=== PATIENT | male | born 1965 | race Caucasian/White ===

== ENCOUNTER 2016-10-19 21:16 | Observation (INO) | payer BC, OTHER ==
[2016-10-19] MEDS ORDERED: Nitrostat 0.4 MG (ED) SL ONE ×2 (21:29→21:44)
[2016-10-19] MEDS ORDERED: BABY ASPIRIN 81 MG CHEW PO ONE (21:29)
[2016-10-19] MEDS ORDERED: Sodium Chloride 0.9% 1000 ML 1,000 ML IV SCH (21:30)
[2016-10-19 21:43] LABS: Mean Cell Volume 98.5 fl (78-100); Mean Corpuscular Hemoglobin 34.4 pg (26-32); Mean Platelet Volume 9.4 fl (6-9.5); Platelet Count 278 K/mm3 (150-450); Red Blood Count 3.98 M/mm3 (4.1-5.6); Red Cell Distribution Width 11.9 % (11.5-14.0); White Blood Count 11.8 K/mm3 (4.0-10.5)
[2016-10-19] MEDS ORDERED: BABY ASPIRIN 81 MG CHEW ONE (21:44)
--- NOTE | 2016-10-19 21:45 | ERPHSYRPT ---
- History of Present Illness Time Seen by Provider: 10/19/16 21:30 Historian: patient Exam Limitations: clinical condition Patient Subjective Stated Complaint: pt has been having chest pain off and on all day he had an mi in august with stent placement -took 1 nitro this edward with temp releif on arr pt is having sl pain and he came because his insisted - feel s like someone is pushing on his chest Triage Nursing Assessment: pt is awake and alert and able to answer question Physician History: PATIENT WITH A HISTORY OF MYOCARDIAL INFARCTION 08/2016 WITH STENT PLACEMENT AT [facility], NOW HAS HAD SUBSTERANL CHEST PAIN LIKE PRESSURE DISCOMFORT THROUGHOUT THE DAY, TOOK NITROGLYCERIN 0.4MG SL X 1 WITH INTERMITTENT RELIEF. STATES PAIN RECURRENCE TO A INTERMITTENT PAIN SCALE OF 5/10. HE DENIES DYSPNEA , DIAPHORESIS OR PALPITATIONS. Timing/Duration: today, intermittent Activities at Onset: none Quality: pressure Location: substernal Chest Pain Radiation: no radiation Severity of Pain-Max: moderate Severity of Pain-Current: moderate Associated Symptoms: denies symptoms Prior Chest Pain/Cardiac Workup: cardiac cath, heart attack Nitro Today/Relief: 0.4 mg x 1, provided by ED, provided at home Aspirin Treatment Today: 81 mg x 4, provided by ED Allergies/Adverse Reactions: No Known Drug Allergies Allergy (Unverified 10/19/16 21:35) Home Medications: Aspirin 81 mg PO DAILY 10/19/16 [History] Atorvastatin Calcium 10 mg PO HS 10/19/16 [History] Carvedilol 6.25 mg [Coreg 6.25 MG] 6.25 mg PO BID 10/19/16 [History] Famotidine 40 mg PO DAILY 10/19/16 [History] Fenofibrate 160 mg PO DAILY 10/19/16 [History] Nitroglycerin 0.4 mg Tablet [Nitrostat 0.4 MG Tablet] 0.4 mg SL UD [History] Ticagrelor [Brilinta] 90 mg PO BID 10/19/16 [History] Hx Influenza Vaccination/Date Given: No Hx Pneumococcal Vaccination/Date Given: No - Review of Systems Constitutional: No Fever, No Chills Eyes: No Symptoms Ears, Nose, & Throat: No Symptoms Respiratory: No Symptoms, No Cough, No Dyspnea Cardiac: Chest Pain, No Edema, No Syncope Abdominal/Gastrointestinal: No Symptoms, No Abdominal Pain, No Nausea, No Vomiting, No Diarrhea Genitourinary Symptoms: No Symptoms, No Dysuria Musculoskeletal: No Symptoms, No Back Pain, No Neck Pain Skin: No Symptoms, No Rash Neurological: No Dizziness, No Focal Weakness, No Sensory Changes Psychological: No Symptoms Endocrine: No Symptoms All Other Systems: Reviewed and Negative - Past Medical History Pertinent Past Medical History: Yes Cardiac History: Myocardial Infarction ([place]) - Past Surgical History Past Surgical History: Yes Cardiac: Cardiac Stent - Social History Smoking Status: Current every day smoker Exposure to second hand smoke: Yes Drug Use: none Patient Lives Alone: No - Nursing Vital Signs Pulse Rate: 72 Respiratory Rate: 16 Pain Intensity: 2 - Physical Exam General Appearance: no apparent distress, alert Eye Exam: PERRL/EOMI, eyes nml inspection Ears, Nose, Throat Exam: normal ENT inspection, moist mucous membranes Neck Exam: normal inspection, non-tender, supple, full range of motion Respiratory Exam: normal breath sounds, lungs clear, No respiratory distress Cardiovascular Exam: regular rate/rhythm, normal heart sounds Gastrointestinal/Abdomen Exam: soft, normal bowel sounds, No tenderness, No mass Back Exam: normal inspection, No CVA tenderness, No vertebral tenderness Extremity Exam: normal inspection, normal range of motion Neurologic Exam: alert, oriented x 3, cooperative, normal mood/affect, sensation nml, No motor deficits Skin Exam: normal color, warm, dry SpO2: 98 Oxygen Delivery: Room Air - Course EKG Interpreted by Me: RATE, Sinus Rhythm, NORMAL AXIS, Other (ANTERIOR SEPTAL T -WAVE INVERSION NO CHANGE FROM EKG 09/08/2016) - Radiology Exams Chest X-ray Interpretation: Interpreted by me, Negative Ordered Tests: Active Orders 24 hr Category Date Time Status Bedrest with BRP/BSC ROUTINE Activity 10/19/16 23:21 Ordered Admission/Status Order ROUTINE Care 10/19/16 23:21 Ordered Call Admit Doctor for Orders ROUTINE Care 10/19/16 23:20 Ordered Ice Skater STAT Care 10/19/16 21:29 Completed Code Status Order ROUTINE Care 10/19/16 23:21 Ordered EKG-ER Only STAT Care 10/19/16 21:29 Completed IV Care Q6H Care 10/19/16 23:21 Ordered IV Insertion STAT Care 10/19/16 21:29 Active Implement Chest Pain Pathway ROUTINE Care 10/19/16 23:21 Ordered Oxygen-ED Only NASAL CANNULA 2 lpm Care 10/19/16 21:29 Active Be Ballard ROUTINE Care 10/19/16 23:21 Ordered Telemetry ROUTINE Care 10/19/16 23:21 Ordered Vital Signs Q4H Care 10/19/16 23:20 Ordered Weight,Daily 0600 Care 10/19/16 23:21 Ordered Cardiac Diet Diet 10/19/16 Breakfast Ordered CHEST 1 VIEW (PORTABLE) Stat Exams 10/19/16 21:33 Taken CBC W DIFF Stat Lab 10/19/16 21:30 Completed CMP Stat Lab 10/19/16 21:30 Completed D-DIMER QUANTITATION Stat Lab 10/19/16 21:30 Completed LIPID PROFILE AM.LAB Lab 10/20/16 04:00 Ordered Manual Differential NC Stat Lab 10/19/16 21:30 Completed PROTIME WITH INR Stat Lab 10/19/16 21:30 Completed TROPONIN Q3H Lab 10/19/16 21:30 Completed TROPONIN Q3H Lab 10/20/16 00:45 Ordered TROPONIN Q3H Lab 10/20/16 03:45 Ordered TROPONIN Q3H Lab 10/20/16 06:45 Ordered TROPONIN Q3H Lab 10/20/16 09:45 Ordered EKG Q8HX2,QAMX3,PRN RT 10/19/16 23:21 Ordered Pulse Oximetry Q4H RT 10/19/16 23:21 Ordered Transfer Order Routine Transfer 10/19/16 23:20 Ordered Medication Summary Generic Name Dose Route Start Last Admin Trade Name Freq PRN Reason Stop Dose Admin Acetaminophen 650 mg 10/19/16 23:20 Tylenol 325 Mg PO 11/18/16 23:19 Q4H PRN PRN PAIN AND/OR FEVER Al Hydrox/Mg Hydrox/Simethicone 30 ml 10/19/16 23:20 Maalox Es 30 Ml Unit Dose PO 11/18/16 23:19 Q4H PRN PRN INDIGESTION Aspirin 325 mg 10/20/16 10:00 Ecotrin 325 Mg PO 11/19/16 09:59 DAILY LYNNETTE Carvedilol 6.25 mg 10/20/16 10:00 Coreg 6.25 Mg PO 11/19/16 09:59 BID L[place]NNETTE Famotidine 20 mg 10/20/16 10:00 Pepcid 20 Mg PO 11/19/16 09:59 BID [facility] Fenofibrate 145 mg 10/20/16 10:00 Tricor 145 Mg PO 11/19/16 09:59 DAILY [facility] Sodium Chloride 1,000 mls @ 50 mls/hr 10/19/16 21:30 10/19/16 21:44 Sodium Chloride 0.9% 1000 Ml IV 11/18/16 21:29 50 mls/hr .Q20H LYNNETTE Administration Magnesium Hydroxide 30 - 60 ml 10/19/16 23:20 Milk Of Magnesia 30 Ml PO 11/18/16 23:19 QDP PRN CONSTIPATION Morphine Sulfate 2 mg 10/19/16 23:20 Morphine Sulfate 2 Mg Inj IV 10/24/16 23:19 .Q15MIN PRN PRN CHEST PAIN Nitroglycerin 0.4 mg 10/19/16 23:20 Nitrostat 0.4 Mg Tablet SL 11/18/16 23:19 .Q5MIN PRN CHEST PAIN Nitroglycerin 1 gm 10/20/16 06:00 Nitro-Bid 2% Ud Packets TOP 11/19/16 05:59 Q8HT [facility] Ondansetron HCl 4 mg 10/19/16 23:20 Zofran 4 Mg/2 Ml Vial IV 11/18/16 23:19 Q4H PRN PRN NAUSEA/VOMITING Senna/Docusate Sodium 2 udtab 10/19/16 23:20 Senokot-S Tablet PO 11/18/16 23:19 BID PRN PRN CONSTIPATION Discontinued Medications Generic Name Dose Route Start Last Admin Trade Name Freq PRN Reason Stop Dose Admin Aspirin 324 mg 10/19/16 21:29 10/19/16 21:42 Baby Aspirin 81 Mg Chew PO 10/19/16 21:30 324 mg STAT ONE Administration Aspirin Confirm 10/19/16 21:44 Baby Aspirin 81 Mg Chew Administered 10/19/16 21:45 Dose 324 mg .ROUTE .STK-MED ONE Nitroglycerin 0.4 mg 10/19/16 21:29 10/19/16 21:44 Nitrostat 0.4 Mg (Ed) SL 10/19/16 21:30 0.4 mg STAT ONE Administration Nitroglycerin Confirm 10/19/16 21:44 Nitrostat 0.4 Mg (Ed) Administered 10/19/16 21:45 Dose 0.4 mg SL .STK-MED ONE Lab/Rad Data: Laboratory Result Diagrams 10/19/16 21:30 10/19/16 21:30 Laboratory Results 10/19/16 10/19/16 10/19/16 Range/Units 21:30 21:30 21:30 WBC (4.0-10.5) K/mm3 RBC (4.1-5.6) M/mm3 Hgb (12.5-18.0) gm/dl Hct (42-50) % MCV (78-100) fl MCH (26-32) pg MCHC (32-36) g/dl RDW (11.5-14.0) % Plt Count (150-450) K/mm3 MPV (6-9.5) fl INR 1.01 (0.8-3.0) D-Dimer < 0.200 (0.00-0.49) mg/L Sodium 141 (136-145) mEq/L Potassium 3.9 (3.5-5.1) mEq/L Chloride 104 (98-107) mEq/L Carbon Dioxide 26.7 (21-32) mEq/L Anion Gap 14.6 (5-15) MEQ/L BUN 20 (9-20) mg/dL Creatinine 1.48 H (0.55-1.30) mg/dl Estimated GFR 53 ML/MIN Glucose 109 (70-110) MG/DL Calcium 9.2 (8.5-10.1) mg/dL Total Bilirubin 0.3 (0.2-1.0) mg/dL AST 20 (15-37) U/L ALT 25 (12-78) U/L Alkaline Phosphatase 76 (46-116) U/L Troponin I < 0.017 (0.000-0.056) ng/ml Serum Total Protein 7.3 (6.4-8.2) gm/dL Albumin 4.1 (3.4-5.0) g/dL 10/19/16 Range/Units 21:30 WBC 11.8 H (4.0-10.5) K/mm3 RBC 3.98 L (4.1-5.6) M/mm3 Hgb 13.7 (12.5-18.0) gm/dl Hct 39.2 L (42-50) % MCV 98.5 (78-100) fl MCH 34.4 H (26-32) pg MCHC 34.9 (32-36) g/dl RDW 11.9 (11.5-14.0) % Plt Count 278 (150-450) K/mm3 MPV 9.4 (6-9.5) fl INR (0.8-3.0) D-Dimer (0.00-0.49) mg/L Sodium (136-145) mEq/L Potassium (3.5-5.1) mEq/L Chloride (98-107) mEq/L Carbon Dioxide (21-32) mEq/L Anion Gap (5-15) MEQ/L BUN (9-20) mg/dL Creatinine (0.55-1.30) mg/dl Estimated GFR ML/MIN Glucose (70-110) MG/DL Calcium (8.5-10.1) mg/dL Total Bilirubin (0.2-1.0) mg/dL AST (15-37) U/L ALT (12-78) U/L Alkaline Phosphatase (46-116) U/L Troponin I (0.000-0.056) ng/ml Serum Total Protein (6.4-8.2) gm/dL Albumin (3.4-5.0) g/dL - Progress Progress: improved Progress Note: 10/19/16 23:17 PATIENT GIVEN 4 BABY ASA, NTG 0.4MG SL COMPLETE RELIEF, THEN NITROPASTE 1" APPLIED TO ANTERIOR CHEST WALL Discussed with : Manan Will see patient in: hospital (observation) (AT 2258 FOR OBSERVATION) - Departure Time of Disposition: 23:30 Departure Disposition: Observation Clinical Impression: ACUTE CHEST PAIN Condition: Stable Critical Care Time: No Referrals: JACQUES SHERMAN MD [Primary Care Provider] -
[2016-10-19 22:08] LABS: ALBUMIN 4.1 g/dL (3.4-5.0); ANION GAP 14.6 MEQ/L (5-15); BILIRUBIN,TOTAL 0.3 mg/dL (0.2-1.0); Carbon Dioxide 26.7 mEq/L (21-32); Potassium 3.9 mEq/L (3.5-5.1); Total Protein 7.3 gm/dL (6.4-8.2)
[2016-10-19 22:37] LABS: INR 1.01 (0.8-3.0); PROTIME 11.3 SECONDS (8.83-12.87)
[2016-10-19] MEDS ORDERED: Senokot-S Tablet PO PRN (23:20)
[2016-10-19] MEDS ORDERED: MAALOX ES 30 ML UNIT DOSE PO PRN (23:20)
[2016-10-19] MEDS ORDERED: Nitrostat 0.4 MG Tablet SL PRN (23:20)
[2016-10-19] MEDS ORDERED: Zofran 4 MG/2 ML VIAL IV PRN (23:20)
[2016-10-19] MEDS ORDERED: TYLENOL 325 MG PO PRN (23:20)
[2016-10-19] MEDS ORDERED: MILK OF MAGNESIA 30 ML PO PRN (23:20)
[2016-10-19] MEDS ORDERED: MORPHINE SULFATE 2 MG INJ IV PRN (23:20)
[2016-10-19 23:52] LABS: Eosinophil 1 % (0.00-3.0); Platelet Estimate NORMAL (NORMAL); Total Cells Counted 100
[2016-10-20] MEDS ORDERED: Nitrostat 0.4 MG Tablet SL PRN (03:48)
[2016-10-20] MEDS ORDERED: MAALOX ES 30 ML UNIT DOSE PO PRN (04:46)
[2016-10-20] MEDS ORDERED: Zofran 4 MG/2 ML VIAL IV PRN (04:46)
[2016-10-20] MEDS ORDERED: MORPHINE SULFATE 2 MG INJ IV PRN (04:46)
[2016-10-20] MEDS ORDERED: TYLENOL 325 MG PO PRN (04:46)
[2016-10-20] MEDS ORDERED: Phenergan 25 MG INJ IV PRN (04:46)
[2016-10-20] MEDS ORDERED: Senokot-S Tablet PO PRN (04:46)
[2016-10-20] MEDS ORDERED: NITRO-BID 2% UD PACKETS TOP SCH (06:00)
[2016-10-20 07:31] VITALS: BP 103/56; PULSE 64; O2SAT 93
[2016-10-20] MEDS ORDERED: Nitrostat 0.4 MG Tablet SL SCH (07:45)
--- NOTE | 2016-10-20 07:56 | PCM.SSS ---
History of Present Illness - Chief Complaint Chief Complaint: CP r/o History of Present Illness: is a 51 year old male with a history of CAD who presented to the ER with acute onset of chest pressure. He had a stent placed in [place] 2 months ago for an [place]. He has no family physician. He has been pain free through the night. - Review of Systems Constitutional: No Fever, No Chills Respiratory: No Cough, No Short Of Breath Cardiac: Chest Pain, No Palpitations, No Syncope Abdominal/Gastrointestinal: No Abdominal Pain, No Nausea, No Vomiting, No Diarrhea Genitourinary Symptoms: No Dysuria Skin: No Rash Neurological: No Dizziness, No Focal Weakness, No Sensory Changes All Other Systems: Reviewed and Negative Medications & Allergies Home Medications: Home Medication List Aspirin 81 mg PO DAILY 10/19/16 [History Confirmed 10/19/16] Atorvastatin Calcium 10 mg PO HS 10/19/16 [History Confirmed 10/19/16] Carvedilol 6.25 mg [Coreg 6.25 MG] 6.25 mg PO BID 10/19/16 [History Confirmed 10/19/16] Famotidine 40 mg PO DAILY 10/19/16 [History Confirmed 10/19/16] Fenofibrate 160 mg PO DAILY 10/19/16 [History Confirmed 10/19/16] Nitroglycerin 0.4 mg Tablet [Nitrostat 0.4 MG Tablet] 0.4 mg SL UD [History Confirmed 10/19/16] Ticagrelor [Brilinta] 90 mg PO BID 10/19/16 [History Confirmed 10/19/16] Allergies/Adverse Reactions: Allergies Allergy/AdvReac Type Severity Reaction Status Date / Time No Known Drug Allergies Allergy Unverified 10/19/16 21:35 - Past Medical History Past Medical History: Yes Neurological History: No Pertinent History ENT History: No Pertinent History Cardiac History: Myocardial Infarction ([place]) Respiratory History: No Pertinent History Endocrine Medical History: No Pertinent History Musculoskelatal History: No Pertinent History GI Medical History: No Pertinent History History: No Pertinent History Pyscho-Social History: No Pertinent History Male Reproductive Disorders: No Pertinent History - Past Surgical History Past Surgical History: Yes Neuro Surgical History: No Pertinent History Cardiac History: Cardiac Stent Respiratory Surgery: No Pertinent History GI Surgical History: No Pertinent History Genitourinary Surgical Hx: No Pertinent History Musculskeletal Surgical Hx: No Pertinent History Male Surgical History: No Pertinent History Other Surgical History: august of 2012. Skin CA removal from face, date unknown - Social History Smoking Status: Current every day smoker How long have you smoked: 30 Exposure to second hand smoke: Yes Alcohol: None Drug Use: none - Physical Exam Vital Signs: Vital Signs - 24 hr Temp Pulse Pulse Resp BP Pulse Ox 10/20/16 07:30 97.9 F 64 18 103/56 93 L 10/20/16 06:51 97 10/20/16 04:00 98.3 F 59 L 16 100/54 98 10/20/16 03:21 98 10/20/16 01:50 97.6 F 61 18 104/70 97 10/20/16 00:00 97.6 F 61 18 104/70 97 10/19/16 23:28 72 16 98 10/19/16 23:21 97 10/19/16 23:09 68 104/68 10/19/16 22:39 68 14 108/68 97 10/19/16 22:06 67 20 108/68 99 10/19/16 21:33 72 10/19/16 21:26 72 16 98 10/19/16 21:16 125/85 Oxygen-Last 24 hours O2 Percentage 2 Liters = 28% O2 Percentage 2 Liters = 28% General Appearance: no apparent distress, alert Neurologic Exam: alert, oriented x 3, cooperative, normal mood/affect, nml cerebellar function, nml station & gait, sensation nml, No motor deficits Respiratory Exam: normal breath sounds, lungs clear, No respiratory distress Cardiovascular Exam: regular rate/rhythm, normal heart sounds, normal peripheral pulses Gastrointestinal/Abdomen Exam: soft, normal bowel sounds, No tenderness, No mass Back Exam: normal inspection, normal range of motion, No CVA tenderness, No vertebral tenderness Extremity Exam: normal inspection, normal range of motion, pelvis stable Skin Exam: normal color, warm, dry, No rash Results - Labs Lab/Micro Results: Lab Results-Last 24 Hours 10/20/16 10/20/16 10/20/16 Range/Units 00:45 03:33 06:39 Troponin I < 0.017 < 0.017 < 0.017 (0.000-0.056) ng/ml Triglycerides (30-200) mg/dL Cholesterol (100-200) mg/dL LDL Cholesterol (5-99) mg/dL HDL Cholesterol (35-60) mg/dL Heart Disease Risk Ratio 10/20/16 Range/Units 06:39 Troponin I (0.000-0.056) ng/ml Triglycerides 215 H (30-200) mg/dL Cholesterol 158 (100-200) mg/dL LDL Cholesterol 96 (5-99) mg/dL HDL Cholesterol 30 L (35-60) mg/dL Heart Disease Risk Ratio 5.3 - Other Procedures and Tests Respiratory Therapy 10/21/16 05:00 EKG DAILY 10/22/16 05:00 EKG DAILY 10/23/16 05:00 EKG DAILY Assessment/Plan (1) Chest pain Current Visit: Yes Status: Acute Code(s): R07.9 - CHEST PAIN, UNSPECIFIED Hospital Summary - Vitals & Intake/Output Vital Signs: Vital Signs Temperature 97.9 F 10/20/16 07:30 Pulse Rate 64 10/20/16 07:30 Respiratory Rate 18 10/20/16 07:30 Blood Pressure 103/56 10/20/16 07:30 O2 Sat by Pulse Oximetry 93 L 10/20/16 07:30 Oxygen-Last Documented O2 Percentage 2 Liters = 28% Intake & Output: Intake & Output 10/17/16 10/18/16 10/19/16 10/20/16 11:59 11:59 11:59 11:59 Intake Total 314 Balance 314 Weight 103.464 kg - Lab Result Diagrams: 10/19/16 21:30 10/19/16 21:30 Lab Results-Last 24 Hrs: Lab Results-Last 24 Hours 10/20/16 10/20/16 10/20/16 Range/Units 00:45 03:33 06:39 Troponin I < 0.017 < 0.017 < 0.017 (0.000-0.056) ng/ml Triglycerides (30-200) mg/dL Cholesterol (100-200) mg/dL LDL Cholesterol (5-99) mg/dL HDL Cholesterol (35-60) mg/dL Heart Disease Risk Ratio 10/20/16 Range/Units 06:39 Troponin I (0.000-0.056) ng/ml Triglycerides 215 H (30-200) mg/dL Cholesterol 158 (100-200) mg/dL LDL Cholesterol 96 (5-99) mg/dL HDL Cholesterol 30 L (35-60) mg/dL Heart Disease Risk Ratio 5.3 - Procedures and Test Procedures and Tests throughout Hospitalization: Therapy Orders & Screens 10/19/16 23:21 EKG Q8HX2,QAMX3,PRN Comment: 10/20/16 02:03 Smoking Cessation Education ONCE Comment: Diagnosis: CP r/o Smoking Status: Current every day smoker How long have you smoked: 30 Have you smoked in the past 12 months: Yes Approximately how many cigarettes per day: 6 Do you dip or chew tobacco: No 10/20/16 05:30 EKG ROUTINE Comment: Diagnosis: CP r/o 10/21/16 05:00 EKG DAILY Comment: Diagnosis: CP r/o 10/22/16 05:00 EKG DAILY Comment: Diagnosis: CP r/o 10/23/16 05:00 EKG DAILY Comment: Diagnosis: CP r/o - Discharge Disposition: Home, Self-Care Condition: Stable Prescriptions: Continue Carvedilol 6.25 mg [Coreg 6.25 MG] 6.25 mg PO BID Atorvastatin Calcium 10 mg PO HS Aspirin 81 mg PO DAILY Fenofibrate 160 mg PO DAILY Nitroglycerin 0.4 mg Tablet [Nitrostat 0.4 MG Tablet] 0.4 mg SL UD Famotidine 40 mg PO DAILY Ticagrelor [Brilinta] 90 mg PO BID Follow up with: JACQUES SHERMAN MD [Primary Care Provider] -
[2016-10-20] MEDS ORDERED: MEDICATION INTERVENTION MC SCH (08:00)
--- NOTE | 2016-10-20 09:07 | XRAY ---
Indication: Dyspnea. Comparison: None Portable apical lordotic clear. Heart and mediastinal structures within normal limits. Bony thorax intact. Impression: Nonacute chest.
[2016-10-20] MEDS ORDERED: NON-FORMULARY ITEM (Aspirin [Aspirin] 81 MG) PO SCH (10:00)
[2016-10-20] MEDS ORDERED: Pepcid 20 MG PO SCH ×2 (10:00)
[2016-10-20] MEDS ORDERED: Coreg 6.25 MG PO SCH ×2 (10:00)
[2016-10-20] MEDS ORDERED: Tricor 145 MG PO SCH ×2 (10:00)
[2016-10-20] MEDS ORDERED: NON-FORMULARY ITEM (Famotidine [Famotidine] 40 MG) PO SCH (10:00)
[2016-10-20] MEDS ORDERED: ECOTRIN 81 MG PO SCH (10:00)
[2016-10-20] MEDS ORDERED: Ecotrin 325 MG PO SCH (10:00)
[2016-10-20] MEDS ORDERED: NON-FORMULARY ITEM (Fenofibrate [Fenofibrate] 160 MG) PO SCH (10:00)
[2016-10-20] MEDS ORDERED: NON-FORMULARY ITEM (Atorvastatin Calcium [Atorvastatin Calcium] 10 MG) PO SCH (22:00)
[2016-10-20] MEDS ORDERED: Zocor 10MG PO SCH (22:00)
== END 2016-10-20 11:10 | disposition home or self-care (01) ==
LOC: ED 21:16 → MED SURG 23:56
PROVIDERS: ADMIT Family Medicine; ATTEND Family Medicine
DX: R07.9 Chest pain, unspecified (principal)
CPT/HCPCS: 36000; 36415; 71010; 80053; 80061; 83721; 84484; 85025; 85379; 85610; 93005; 93041; 93268; 99285; G0378; A9270-GY

== ENCOUNTER 2018-10-07 20:09 | Emergency (ER) | payer BC ==
[2018-10-07] MEDS ORDERED: DUONEB 0.5-3 MG/3 ml Neb IH ONE ×2 (20:29→20:35)
[2018-10-07] MEDS ORDERED: ROCEPHIN 1 Gm-D5w 50 ml Bag** 1 G/50 ML IVPB IV STA (20:29)
[2018-10-07] MEDS ORDERED: Zithromax 500 MG/ 250 ML NaCl Premix 500 MG/250 ML IVPB IV STA (20:29)
[2018-10-07] MEDS ORDERED: ROCEPHIN 1 Gm-D5w 50 ml Bag** 1 G/50 ML IVPB IV ONE (20:34)
[2018-10-07 20:36] LABS: BASOPHIL % 0.6 % (0.0-0.4); Basophil (Absolute #) 0.07 (0-0.4); Eosinophil % 5.4 % (0.00-5.0); Eosinophil (Absolute #) 0.58 (0-0.5); Granulocyte Absolute (ANC) 5.13 (1.4-6.9); Granulocytes % 47.4 % (36.0-66.0); Hematocrit 41.2 % (42-50); Hemoglobin 13.5 gm/dl (12.5-18.0); Lymphocytes % 38.7 % (24.0-44.0); Mean Cell Volume 102.7 fl (78-100); Mean Corpuscular Hgb Concent. 32.8 g/dl (32-36); Mean Platelet Volume 9.5 fl (6-9.5); Monocyte (Absolute #) 0.86 (0.0-1.3); Monocytes % 7.9 % (0.0-12.0); Platelet Count 309 K/mm3 (150-450); Red Blood Count 4.01 M/mm3 (4.1-5.6); Red Cell Distribution Width 13.1 % (11.5-14.0); White Blood Count 10.8 K/mm3 (4.0-10.5)
[2018-10-07 20:37] LABS: Mean Corpuscular Hemoglobin 33.6 pg (26-32)
[2018-10-07 20:51] LABS: ALBUMIN 4.5 g/dL (3.5-5.0); ALKALINE PHOSPHATASE 59 U/L (38-126); ANION GAP 13.2 MEQ/L (5-15); BLOOD UREA NITROGEN 18 mg/dL (9-20); CHLORIDE 107 mmol/L (98-107); Carbon Dioxide 26 mmol/L (22-30); Creatinine 1 1.08 mg/dL (0.66-1.25); Glucose 90 mg/dL (74-106); SGOT/AST 33 U/L (17-59); SGPT/ALT 32 U/L (0-50); SODIUM 143 mmol/L (137-145); Total Protein 7.7 g/dL (6.3-8.2)
[2018-10-07 21:06] LABS: NT PRO BNP 100 pg/mL (0-900)
[2018-10-07] MEDS ORDERED: Zithromax 500 MG/ 250 ML NaCl Premix 500 MG/250 ML IVPB IV ONE (21:07)
[2018-10-07 21:08] LABS: TROPONIN < 0.012 ng/mL (0.000-0.034)
[2018-10-07 21:17] VITALS: BP 123/73
[2018-10-07] MEDS ORDERED: solu-MEDROL 125 MG IV ONE (21:58)
[2018-10-07] MEDS ORDERED: solu-MEDROL 125 MG ONE (22:14)
--- NOTE | 2018-10-07 23:19 | ERPHSYRPT ---
- History of Present Illness Source: patient Exam Limitations: no limitations Patient Subjective Stated Complaint: pt states he has had difficulty breathing since diagnosed with flu in early august. states difficulty has been worse since monday. denies chest pain. Triage Nursing Assessment: pt alert and oriented, answers questions approp. pt ambulatory with steady gait noted. skin pink warm and dry. respirations nonlabored with lungs cta. pt sinus rhythm on monitor. Physician History: Pt is a 53 y/o male that presented to the ED complaining of SOB and wheezing. Pt states, for the whole weekend, he was getting nebs, and he did not get any relief. Pt smokes 1ppd for decades. He is seeing his PCP for his SOB, and was never seen by a washtub worker. Pt denies F/C/S. No chest pain or palpitations. No N/V?D or abdominal pain. Timing/Duration: day(s) Activities at Onset: none Severity of Dyspnea-Max: mild Severity of Dyspnea-Current: mild Possible Cause: no prior episodes Modifying Factors: Improves With: albuterol nebulizer Associated Symptoms: wheezing Allergies/Adverse Reactions: No Known Drug Allergies Allergy (Verified 10/07/18 20:40) Home Medications: Aspirin 81 mg PO DAILY 10/19/16 [History] Atorvastatin Calcium 10 mg PO HS 10/19/16 [History] Carvedilol 6.25 mg [Coreg 6.25 MG] 6.25 mg PO BID 10/19/16 [History] Famotidine 40 mg PO DAILY 10/19/16 [History] Fenofibrate 160 mg PO DAILY 10/19/16 [History] Nitroglycerin 0.4 mg Tablet [Nitrostat 0.4 MG Tablet] 0.4 mg SL UD [History] Clopidogrel Bisulfate 75 mg [PLAVIX 75 MG Tablet] 75 mg PO DAILY 10/07/18 [History] Hx Tetanus, Diphtheria Vaccination/Date Given: Yes Hx Influenza Vaccination/Date Given: No Hx Pneumococcal Vaccination/Date Given: No Immunizations Up to Date: Yes - Review of Systems Constitutional: No Fever, No Chills Eyes: No Symptoms Ears, Nose, & Throat: No Symptoms Respiratory: Cough, Dyspnea, Dyspnea on Exertion (ESQUIVEL), Wheezing Cardiac: No Chest Pain, No Edema, No Syncope Abdominal/Gastrointestinal: No Abdominal Pain, No Nausea, No Vomiting, No Diarrhea Genitourinary Symptoms: No Dysuria Musculoskeletal: No Back Pain, No Neck Pain Skin: No Rash Neurological: No Dizziness, No Focal Weakness, No Sensory Changes - Past Medical History Pertinent Past Medical History: Yes Neurological History: No Pertinent History ENT History: No Pertinent History Cardiac History: Coronary Artery Disease, Myocardial Infarction (CT) Respiratory History: Bronchitis Endocrine Medical History: No Pertinent History Musculoskeletal History: No Pertinent History GI Medical History: No Pertinent History History: No Pertinent History Psycho-Social History: No Pertinent History Male Reproductive Disorders: No Pertinent History - Past Surgical History Past Surgical History: Yes Neuro Surgical History: No Pertinent History Cardiac: Cardiac Stent Respiratory: No Pertinent History Gastrointestinal: No Pertinent History Genitourinary: No Pertinent History Musculoskeletal: No Pertinent History Male Surgical History: No Pertinent History Other Surgical History: august of 2012. Skin CA removal from face, date unknown - Social History Smoking Status: Current every day smoker How long have you smoked: 30 Exposure to second hand smoke: Yes Drug Use: none Patient Lives Alone: No - Nursing Vital Signs Nursing Vital Signs: Initial Vital Signs Temperature 97.7 F 10/07/18 20:14 Pulse Rate 87 10/07/18 20:14 Respiratory Rate 18 10/07/18 20:14 Blood Pressure 143/83 10/07/18 20:14 O2 Sat by Pulse Oximetry 95 10/07/18 20:14 Pain Scale Pain Intensity 0 - Physical Exam General Appearance: mild distress Eye Exam: PERRL/EOMI Neck Exam: normal inspection, supple Respiratory Exam: accessory muscle use, wheezing Cardiovascular/Chest Exam: normal heart sounds, regular rate/rhythm Abdominal/Gastrointestinal Exam: soft, No tenderness, No distention, No mass Extremity Exam: non-tender, normal range of motion, normal inspection, no calf tenderness, no pedal edema Neurologic Exam: alert, oriented x 3, cooperative, tire adjuster II-XII nml as tested, sensation nml, No motor deficits Skin Exam: normal color, warm, No dry SpO2 Interpretation: normal SpO2: 93 - Course Nursing assessment & vital signs reviewed: Yes EKG Interpreted by Me: RATE (91bpm), Sinus Rhythm, Other (Poor progression of QRS in V1 V2. H/O CT and LAD stent.) - Radiology Exams Chest X-ray Interpretation: Interpreted by me (fluid overload, mild. ) Ordered Tests: Active Orders 24 hr Category Date Time Status Cooling Pan Tender STAT Care 10/07/18 20:29 Active EKG-ER Only STAT Care 10/07/18 20:35 Active IV Insertion STAT Care 10/07/18 20:35 Active CHEST 2 VIEWS (PA AND LAT) Stat Exams 10/07/18 20:48 Taken CBC W DIFF Stat Lab 10/07/18 20:33 Completed CMP Stat Lab 10/07/18 20:33 Completed D-DIMER QUANTITATION Stat Lab 10/07/18 20:44 Completed NT PRO BNP Routine Lab 10/07/18 20:44 Completed TROPONIN Q3H Lab 10/07/18 20:44 Completed TROPONIN Q3H Lab 10/07/18 23:45 Ordered Peak Expiratory Flow Rate ONCE RT 10/07/18 20:37 Active Respiratory Nebulizer STAT RT 10/07/18 20:30 Completed Respiratory Therapy Assessment DAILY RT 10/07/18 20:36 Active Medication Summary Discontinued Medications Generic Name Dose Route Start Last Admin Trade Name Freq PRN Reason Stop Dose Admin Albuterol/Ipratropium 3 ml 10/07/18 20:29 10/07/18 20:50 Duoneb 0.5-3 Mg/3 Ml Neb IH 10/07/18 20:30 3 ml STAT ONE Administration Albuterol/Ipratropium Confirm 10/07/18 20:35 Duoneb 0.5-3 Mg/3 Ml Neb Administered 10/07/18 20:36 Dose 3 ml IH .STK-MED ONE Ceftriaxone Sodium/Dextrose 1 g in 50 mls @ 100 mls/hr 10/07/18 20:29 21:06 Rocephin 1 Gm-D5w 50 Ml Bag IV 10/07/18 20:58 Infused STAT STA Infusion Azithromycin 500 mg in 250 mls @ 250 mls/hr 10/07/18 20:29 10/07/18 22:13 Zithromax 500 Mg/ 250 Ml Nacl Premix IV 10/07/18 21:28 Infused STAT STA Infusion Ceftriaxone Sodium/Dextrose Confirm 10/07/18 20:34 Rocephin 1 Gm-D5w 50 Ml Bag Administered 10/07/18 20:35 Dose 1 g in 50 mls @ ud IV .STK-MED ONE Azithromycin Confirm 10/07/18 21:07 Zithromax 500 Mg/ 250 Ml Nacl Premix Administered 10/07/18 21:08 Dose 500 mg in 250 mls @ ud IV .STK-MED ONE Methylprednisolone Sodium Succinate 125 mg 10/07/18 21:58 10/07/18 22:16 Solu-Medrol 125 Mg IV 10/07/18 21:59 125 mg STAT ONE Administration Methylprednisolone Sodium Succinate Confirm 10/07/18 22:14 Solu-Medrol 125 Mg Administered 10/07/18 22:15 Dose 125 mg .ROUTE .STK-MED ONE Lab/Rad Data: Laboratory Result Diagrams 10/07/18 20:33 10/07/18 20:33 Laboratory Results 10/07/18 10/07/18 10/07/18 Range/Units 20:44 20:44 20:33 WBC (4.0-10.5) K/mm3 RBC (4.1-5.6) M/mm3 Hgb (12.5-18.0) gm/dl Hct (42-50) % MCV (78-100) fl MCH (26-32) pg MCHC (32-36) g/dl RDW (11.5-14.0) % Plt Count (150-450) K/mm3 MPV (6-9.5) fl Gran % (36.0-66.0) % Eos # (Auto) (0-0.5) Absolute Lymphs (auto) (1.0-4.6) Absolute Monos (auto) (0.0-1.3) Lymphocytes % (24.0-44.0) % Monocytes % (0.0-12.0) % Eosinophils % (0.00-5.0) % Basophils % (0.0-0.4) % Absolute Granulocytes (1.4-6.9) Basophils # (0-0.4) D-Dimer 252 (215-500) ng/mL Sodium 143 (137-145) mmol/L Potassium 4.0 (3.5-5.1) mmol/L Chloride 107 (98-107) mmol/L Carbon Dioxide 26 (22-30) mmol/L Anion Gap 13.2 (5-15) MEQ/L BUN 18 (9-20) mg/dL Creatinine 1.08 (0.66-1.25) mg/dL Estimated GFR > 60.0 ML/MIN Glucose 90 (74-106) mg/dL Calcium 10.0 (8.4-10.2) mg/dL Total Bilirubin 0.40 (0.2-1.3) mg/dL AST 33 (17-59) U/L ALT 32 (0-50) U/L Alkaline Phosphatase 59 (38-126) U/L Troponin I < 0.012 (0.000-0.034) ng/mL NT-Pro-B Natriuret Pep 100 (0-900) pg/mL Serum Total Protein 7.7 (6.3-8.2) g/dL Albumin 4.5 (3.5-5.0) g/dL 10/07/18 Range/Units 20:33 WBC 10.8 H (4.0-10.5) K/mm3 RBC 4.01 L (4.1-5.6) M/mm3 Hgb 13.5 (12.5-18.0) gm/dl Hct 41.2 L (42-50) % MCV 102.7 H (78-100) fl MCH 33.6 H (26-32) pg MCHC 32.8 (32-36) g/dl RDW 13.1 (11.5-14.0) % Plt Count 309 (150-450) K/mm3 MPV 9.5 (6-9.5) fl Gran % 47.4 (36.0-66.0) % Eos # (Auto) 0.58 H (0-0.5) Absolute Lymphs (auto) 4.20 (1.0-4.6) Absolute Monos (auto) 0.86 (0.0-1.3) Lymphocytes % 38.7 (24.0-44.0) % Monocytes % 7.9 (0.0-12.0) % Eosinophils % 5.4 H (0.00-5.0) % Basophils % 0.6 (0.0-0.4) % Absolute Granulocytes 5.13 (1.4-6.9) Basophils # 0.07 (0-0.4) D-Dimer (215-500) ng/mL Sodium (137-145) mmol/L Potassium (3.5-5.1) mmol/L Chloride (98-107) mmol/L Carbon Dioxide (22-30) mmol/L Anion Gap (5-15) MEQ/L BUN (9-20) mg/dL Creatinine (0.66-1.25) mg/dL Estimated GFR ML/MIN Glucose (74-106) mg/dL Calcium (8.4-10.2) mg/dL Total Bilirubin (0.2-1.3) mg/dL AST (17-59) U/L ALT (0-50) U/L Alkaline Phosphatase (38-126) U/L Troponin I (0.000-0.034) ng/mL NT-Pro-B Natriuret Pep (0-900) pg/mL Serum Total Protein (6.3-8.2) g/dL Albumin (3.5-5.0) g/dL - Progress Progress: improved Air Movement: good Progress Note: 10/07/18 23:23 Pt was treated with Duo neb, Solu Medrol 125mg IV, Azithromycin and Rocephin IV. Labs were normal, and Troponin as well. BNP was 100. Pt's sCr was slightly elevated, and I did not order any Lasix. Pt did improve, and his lungs are clear, at this point. Pt is cleared for d/c on Doxycycline for COPD exacerbation, Medrol dose pack and Symbicort for preventative of exacerbation. Pt was advised not to smoke. He should f/u with his PCP, and get referal for pulmonology. He will need PFT in the future, when he is healed. Blood Culture(s) Obtained: No Antibiotics given: Yes Will see patient in: office Counseled pt/family regarding: need for follow-up - Departure Departure Disposition: Home Clinical Impression: COPD exacerbation Condition: Stable Critical Care Time: No Referrals: YUE HIGGINS MD [Primary Care Provider] - Instructions: Chronic Obstructive Pulmonary Disease Additional Instructions: F/U with PCP. Avoid smoking and take meds as ordered. Get referal for Pulmonology and PFT when stable. Forms: Work/School Release Form Prescriptions: Budesonide/Formoterol Fumarate [Symbicort 160-4.5 Mcg Inhaler] 2 puff IH BID 30 Days #1 hfa.aer.ad Doxycycline Hyclate 100 mg PO BID 10 Days #20 capsule Methylprednisolone Packet [Medrol Dosepack] 4 mg PO UD #30 packet
[2018-10-07 23:46] VITALS: PULSE 77; O2SAT 98
--- NOTE | 2018-10-08 08:47 | XRAY ---
Indication: Chest pain and short of breath. Comparison: October 19, 2016. PA/lateral chest again hyperinflated with new lingular discoid atelectasis/scarring. Remaining heart, lungs, and bony thorax unremarkable.
== END 2018-10-07 23:52 | disposition home or self-care (01) ==
LOC: ED 20:09
DX: J44.1 Chronic obstructive pulmonary disease with (acute) exacerbation (principal); Z72.0 Tobacco use; I25.10 Atherosclerotic heart disease of native coronary artery without angina pectoris; I25.2 Old myocardial infarction; Z85.828 Personal history of other malignant neoplasm of skin; Z79.899 Other long term (current) drug therapy
CPT/HCPCS: 36000; 36415; 71046; 80053; 83880; 84484; 85025; 85379; 93005; 93041; 94150; 94640; 96365; 96367; 96374; 99284; J0456; J0696; J2930; A9270-GY

== ENCOUNTER 2019-12-31 12:52 | Emergency (ER) | payer BC, MEDICAID ==
--- NOTE | 2019-12-31 12:53 | ERPHSYRPT ---
- History of Present Illness Time Seen by Provider: 12/31/19 12:53 Source: patient, family Exam Limitations: no limitations Physician History: This is a 54-year-old white male who has a history of coronary artery disease and a myocardial infarction in the past. He presents with worsening shortness of breath over the last few days. Patient is only taking carvedilol blood pressure medications. The other medication she supposed to be on are too expensive per his report. Patient denies chest pain today. He has a history of recurrent bronchitis. He is a smoker of cigarettes. he has no coughing. Patient has no leg pain or leg cramping. Timing/Duration: day(s) (3), worse Activities at Onset: none Severity of Dyspnea-Max: moderate Severity of Dyspnea-Current: moderate Possible Cause: occasional episodes Modifying Factors: Improves With: oxygen Associated Symptoms: wheezing, No cough, No chest pain/discomfort, No weakness, No ankle swelling, No calf pain Allergies/Adverse Reactions: No Known Drug Allergies Allergy (Verified 10/07/18 20:40) Home Medications: Aspirin 81 mg PO DAILY 10/19/16 [History] Atorvastatin Calcium 10 mg PO HS 10/19/16 [History] Carvedilol 6.25 mg [Coreg 6.25 MG] 6.25 mg PO BID 10/19/16 [History] Famotidine 40 mg PO DAILY 10/19/16 [History] Fenofibrate 160 mg PO DAILY 10/19/16 [History] Nitroglycerin 0.4 mg Tablet [Nitrostat 0.4 MG Tablet] 0.4 mg SL UD 10/19/16 [History] Hx Tetanus, Diphtheria Vaccination/Date Given: Yes Hx Influenza Vaccination/Date Given: No Hx Pneumococcal Vaccination/Date Given: No Travel Risk - International Travel Have you traveled outside of the country in past 3 weeks: No - Coronavirus Screening Are you exhibiting any of the following symptoms?: Yes Symptoms: Shortness of Breath Close contact with a COVID-19 positive Pt in past 14-21 Days: No - Review of Systems Constitutional: No Symptoms Eyes: No Symptoms Ears, Nose, & Throat: No Symptoms Respiratory: Dyspnea Cardiac: No Symptoms, No Chest Pain, No Palpitations Abdominal/Gastrointestinal: No Symptoms Genitourinary Symptoms: No Symptoms Musculoskeletal: No Symptoms Skin: No Symptoms Neurological: No Symptoms Psychological: No Symptoms Endocrine: No Symptoms Hematologic/Lymphatic: No Symptoms Immunological/Allergic: No Symptoms All Other Systems: Reviewed and Negative - Past Medical History Pertinent Past Medical History: Yes Neurological History: No Pertinent History ENT History: No Pertinent History Cardiac History: Coronary Artery Disease, Myocardial Infarction ([place]) Respiratory History: Bronchitis Endocrine Medical History: No Pertinent History Musculoskeletal History: No Pertinent History GI Medical History: No Pertinent History History: No Pertinent History Psycho-Social History: No Pertinent History Male Reproductive Disorders: No Pertinent History - Past Surgical History Past Surgical History: Yes Neuro Surgical History: No Pertinent History Cardiac: Cardiac Stent Respiratory: No Pertinent History Gastrointestinal: No Pertinent History Genitourinary: No Pertinent History Musculoskeletal: No Pertinent History Male Surgical History: No Pertinent History Other Surgical History: august of 2012. Skin CA removal from face, date unknown - Social History Smoking Status: Current every day smoker How long have you smoked: 30 Exposure to second hand smoke: Yes Drug Use: none Patient Lives Alone: No - Nursing Vital Signs Nursing Vital Signs: Initial Vital Signs Temperature 97.8 F 12/31/19 12:59 Pulse Rate 78 12/31/19 12:59 Respiratory Rate 18 12/31/19 12:59 Blood Pressure 138/80 12/31/19 12:59 O2 Sat by Pulse Oximetry 95 12/31/19 12:59 Pain Scale Pain Intensity 0 - Physical Exam General Appearance: no apparent distress, alert, anxiety Eye Exam: PERRL/EOMI, eyes nml inspection Ears, Nose, Throat Exam: hearing grossly normal Neck Exam: normal inspection, non-tender, supple, full range of motion Respiratory Exam: airway intact, wheezing, No chest tenderness, No respiratory distress Cardiovascular/Chest Exam: normal heart sounds, regular rate/rhythm, normal peripheral pulses Abdominal/Gastrointestinal Exam: soft, normal bowel sounds, No tenderness Rectal Exam: not done Extremity Exam: non-tender, normal range of motion, normal inspection Neurologic Exam: alert, oriented x 3, cooperative, sand mixer II-XII nml as tested, normal mood/affect, nml cerebellar function, nml station & gait, sensation nml Skin Exam: normal color, warm, dry Lymphatic Exam: No adenopathy SpO2 Interpretation: normal, borderline oxygenation O2 Delivery: Room Air - Course Nursing assessment & vital signs reviewed: Yes EKG Interpreted by Me: RATE (76), Sinus Rhythm, NORMAL AXIS, NORMAL INTERVALS, NORMAL QRS, Other (Comparison EKG was performed on October 07, 2018. There is persistent sinus rhythm and persistent anterior infarct that is old. On the current EKG there is no acute ischemic changes.) Ordered Tests: Active Orders 24 hr Category Date Time Status Primer Powder Blender Wet STAT Care 12/31/19 13:10 Active EKG-ER Only STAT Care 12/31/19 13:09 Active IV Insertion STAT Care 12/31/19 13:10 Active Oxygen-ED Only Nasal Cannula 2 lpm Care 12/31/19 13:10 Active Pulse Oximetry (ED) STAT Care 12/31/19 13:10 Active CHEST 1 VIEW (PORTABLE) Stat Exams 12/31/19 13:19 Completed BLOOD CULTURE Stat Lab 12/31/19 13:41 Received CBC W DIFF Stat Lab 12/31/19 13:36 Completed CMP Stat Lab 12/31/19 13:36 Completed D-DIMER QUANTITATIVE Stat Lab 12/31/19 13:36 Completed Lactic Acid Stat Lab 12/31/19 13:18 Completed NT PRO BNP Stat Lab 12/31/19 13:36 Completed TROPONIN Q3H Lab 12/31/19 13:36 Completed TROPONIN Q3H Lab 12/31/19 16:30 Ordered TROPONIN Q3H Lab 12/31/19 19:30 Ordered TROPONIN Q3H Lab 12/31/19 22:30 Ordered TROPONIN Q3H Lab 01/01/20 01:30 Ordered Respiratory Therapy Assessment DAILY RT 12/31/19 14:55 Active Medication Summary Discontinued Medications Generic Name Dose Route Start Last Admin Trade Name Freq PRN Reason Stop Dose Admin Albuterol/Ipratropium 3 ml 12/31/19 14:41 12/31/19 14:53 Duoneb 0.5-3 Mg/3 Ml Neb IH 12/31/19 14:42 3 ml STAT ONE Administration Albuterol/Ipratropium Confirm 12/31/19 14:46 Duoneb 0.5-3 Mg/3 Ml Neb Administered 12/31/19 14:47 Dose 3 ml IH .STK-MED ONE Methylprednisolone Sodium Succinate 125 mg 12/31/19 13:18 12/31/19 13:50 Solu-Medrol 125 Mg IV 12/31/19 13:19 125 mg STAT ONE Administration Methylprednisolone Sodium Succinate Confirm 12/31/19 13:49 Solu-Medrol 125 Mg Administered 12/31/19 13:50 Dose 125 mg .ROUTE .STK-MED ONE Lab/Rad Data: Laboratory Result Diagrams 12/31/19 13:36 12/31/19 13:36 Laboratory Results 12/31/19 12/31/19 12/31/19 Range/Units 13:36 13:36 13:36 WBC (4.0-10.5) K/mm3 RBC (4.1-5.6) M/mm3 Hgb (12.5-18.0) gm/dl Hct (42-50) % MCV (78-100) fl MCH (26-32) pg MCHC (32-36) g/dl RDW (11.5-14.0) % Plt Count (150-450) K/mm3 MPV (7.5-11.0) fl Gran % (36.0-66.0) % Eos # (Auto) (0-0.5) Absolute Lymphs (auto) (1.0-4.6) Absolute Monos (auto) (0.0-1.3) Lymphocytes % (24.0-44.0) % Monocytes % (0.0-12.0) % Eosinophils % (0.00-5.0) % Basophils % (0.0-0.4) % Absolute Granulocytes (1.4-6.9) Basophils # (0-0.4) D-Dimer < 215 L (215-500) ng/mL Sodium (137-145) mmol/L Potassium (3.5-5.1) mmol/L Chloride (98-107) mmol/L Carbon Dioxide (22-30) mmol/L Anion Gap (5-15) MEQ/L BUN (9-20) mg/dL Creatinine (0.66-1.25) mg/dL Estimated GFR ML/MIN Glucose (74-106) mg/dL Lactic Acid (0.4-2.0) Calcium (8.4-10.2) mg/dL Total Bilirubin (0.2-1.3) mg/dL AST (17-59) U/L ALT (0-50) U/L Alkaline Phosphatase (38-126) U/L Troponin I < 0.012 (0.000-0.034) ng/mL NT-Pro-B Natriuret Pep (0-900) pg/mL Serum Total Protein (6.3-8.2) g/dL Albumin (3.5-5.0) g/dL Influenza Type A Ag NEGATIVE (NEGATIVE) Influenza Type B Ag NEGATIVE (NEGATIVE) RSV (PCR) NEGATIVE (Negative) 12/31/19 12/31/19 12/31/19 Range/Units 13:36 13:36 13:18 WBC 10.7 H (4.0-10.5) K/mm3 RBC 4.58 (4.1-5.6) M/mm3 Hgb 15.3 (12.5-18.0) gm/dl Hct 46.3 (42-50) % MCV 101.1 H (78-100) fl MCH 33.4 H (26-32) pg MCHC 33.0 (32-36) g/dl RDW 12.6 (11.5-14.0) % Plt Count 266 (150-450) K/mm3 MPV 9.4 (7.5-11.0) fl Gran % 48.3 (36.0-66.0) % Eos # (Auto) 0.58 H (0-0.5) Absolute Lymphs (auto) 4.20 (1.0-4.6) Absolute Monos (auto) 0.69 (0.0-1.3) Lymphocytes % 39.2 (24.0-44.0) % Monocytes % 6.4 (0.0-12.0) % Eosinophils % 5.4 H (0.00-5.0) % Basophils % 0.7 (0.0-0.4) % Absolute Granulocytes 5.17 (1.4-6.9) Basophils # 0.07 (0-0.4) D-Dimer (215-500) ng/mL Sodium 142 (137-145) mmol/L Potassium 4.3 (3.5-5.1) mmol/L Chloride 109 H (98-107) mmol/L Carbon Dioxide 25 (22-30) mmol/L Anion Gap 11.8 (5-15) MEQ/L BUN 11 (9-20) mg/dL Creatinine 0.77 (0.66-1.25) mg/dL Estimated GFR > 60.0 ML/MIN Glucose 91 (74-106) mg/dL Lactic Acid 1.3 (0.4-2.0) Calcium 9.9 (8.4-10.2) mg/dL Total Bilirubin 0.60 (0.2-1.3) mg/dL AST 22 (17-59) U/L ALT 17 (0-50) U/L Alkaline Phosphatase 76 (38-126) U/L Troponin I (0.000-0.034) ng/mL NT-Pro-B Natriuret Pep 87.1 (0-900) pg/mL Serum Total Protein 7.9 (6.3-8.2) g/dL Albumin 4.7 (3.5-5.0) g/dL Influenza Type A Ag (NEGATIVE) Influenza Type B Ag (NEGATIVE) RSV (PCR) (Negative) - Progress Progress: improved, re-examined Air Movement: good Progress Note: 12/31/19 14:09 Chest x-ray shows no acute pulmonary process 12/31/19 15:10 Patient denies chest pain. Patient is feeling better and he wants to go home. Blood Culture(s) Obtained: Yes Counseled pt/family regarding: lab results, diagnosis, need for follow-up, rad results - Departure Departure Disposition: Home Clinical Impression: COPD exacerbation Condition: Stable Critical Care Time: No Referrals: YUE HIGGINS MD [Primary Care Provider] - Instructions: Chronic Obstructive Pulmonary Disease Additional Instructions: Avoid exposure to any type of smoke. Take medications as prescribed. Use your inhaler as prescribed. Follow-up with your primary care physician for further management Prescriptions: Prednisone 10 mg [Deltasone 10 mg] 10 mg PO TID #12 tablet Albuterol 8 gm Mdi Hfa [Ventolin Hfa MDI] 8 gm IH Q4H #1 hfa.aer.ad
[2019-12-31] MEDS ORDERED: solu-MEDROL 125 MG IV ONE (13:18)
[2019-12-31] MEDS ORDERED: solu-MEDROL 125 MG ONE (13:49)
--- NOTE | 2019-12-31 13:51 | XRAY ---
Indication: Cough and short of breath 3 days. Comparison: October 07, 2018. Portable chest again hyperinflated and clear. Heart is not enlarged. Bony thorax intact. Impression: Continued nonacute hyperinflated chest.
[2019-12-31 13:53] VITALS: O2SAT 95
[2019-12-31 13:53] LABS: Absolute Neutrophil Ct (ANC) 5.17 (1.4-6.9); BASOPHIL % 0.7 % (0.0-0.4); Basophil (Absolute #) 0.07 (0-0.4); Eosinophil % 5.4 % (0.00-5.0); Eosinophil (Absolute #) 0.58 (0-0.5); Hematocrit 46.3 % (42-50); Hemoglobin 15.3 gm/dl (12.5-18.0); Lymphocytes % 39.2 % (24.0-44.0); Mean Cell Volume 101.1 fl (78-100); Mean Corpuscular Hemoglobin 33.4 pg (26-32); Mean Platelet Volume 9.4 fl (7.5-11.0); Monocyte (Absolute #) 0.69 (0.0-1.3); Monocytes % 6.4 % (0.0-12.0); Neutrophil % 48.3 % (36.0-66.0); Platelet Count 266 K/mm3 (150-450); Red Blood Count 4.58 M/mm3 (4.1-5.6); Red Cell Distribution Width 12.6 % (11.5-14.0); White Blood Count 10.7 K/mm3 (4.0-10.5)
[2019-12-31 14:23] LABS: INFLUENZA A NEGATIVE (NEGATIVE); INFLUENZA B NEGATIVE (NEGATIVE); RESPIRATORY SYNCTIAL VIRUS NEGATIVE (Negative)
[2019-12-31 14:24] LABS: ALBUMIN 4.7 g/dL (3.5-5.0); ALKALINE PHOSPHATASE 76 U/L (38-126); ANION GAP 11.8 MEQ/L (5-15); BLOOD UREA NITROGEN 11 mg/dL (9-20); CHLORIDE 109 mmol/L (98-107); Calcium 9.9 mg/dL (8.4-10.2); Carbon Dioxide 25 mmol/L (22-30); Creatinine 1 0.77 mg/dL (0.66-1.25); Glucose 91 mg/dL (74-106); NT PRO BNP 87.1 pg/mL (0-900); Potassium 4.3 mmol/L (3.5-5.1); SGOT/AST 22 U/L (17-59); SGPT/ALT 17 U/L (0-50); SODIUM 142 mmol/L (137-145); Total Protein 7.9 g/dL (6.3-8.2)
[2019-12-31] MEDS ORDERED: DUONEB 0.5-3 MG/3 ml Neb IH ONE ×2 (14:41→14:46)
[2019-12-31 15:03] VITALS: BP 109/67; PULSE 114
[2019-12-31 15:09] LABS: Slide Review 1 YES
== END 2019-12-31 15:21 | disposition home or self-care (01) ==
LOC: ED 12:52
DX: J44.1 Chronic obstructive pulmonary disease with (acute) exacerbation (principal)
CPT/HCPCS: 36000; 36415; 71045; 80053; 83605; 83880; 84484; 85025; 85379; 87040; 87631; 93005; 93041; 94640; 94760; 96374; 99284; J2930; A9270-GY